=== PATIENT | female | born 2000 | race Caucasian/White ===

== ENCOUNTER 2023-10-14 19:16 | Inpatient (IN) | payer OTHER ==
[2023-10-14 21:38] LABS: EPI CELLS >36 /uL (0-25.1); HYALINE CASTS 2 /uL (0-3.1); PH,URINE >= 9.0 (5.0-8.0); URINE APPEARANCE CLOUDY; URINE BACTERIA 1407 /uL (0-1359); URINE BILIRUBIN NEGATIVE (NEGATIVE); URINE COLOR YELLOW; URINE GLUCOSE (UA) NEGATIVE (NEGATIVE); URINE KETONE NEGATIVE (NEGATIVE); URINE LEUK ESTERASE NEGATIVE (NEGATIVE); URINE NITRITE NEGATIVE (NEGATIVE); URINE PROTEIN 2+ (NEGATIVE); URINE WBC 39 /uL (0-25.8)
[2023-10-14] MEDS ORDERED: ONDANSETRON 4 MG/2 ML VIAL ONE (22:08)
[2023-10-14] MEDS ORDERED: ACETAMINOPHEN INJECTION 100 ML IVPB ONE (22:09)
[2023-10-14] MEDS: ONDANSETRON 4 MG/2 ML VIAL IVPUSH ONE (22:17)
[2023-10-14] MEDS: ACETAMINOPHEN 1000 MG/100 ML BAG IVPB ONE (22:17)
[2023-10-14] MEDS: LACTATED RINGERS SOLUTION 1000 ML INFUS.BAG IV ONE (22:17)
[2023-10-14 22:21] LABS: BASO % 0.4 % (0-2.0); HEMATOCRIT 41.8 % (32.4-45.2); HEMOGLOBIN 13.7 GM/dL (10.7-15.3); LYMPH % 39.9 % (8-40); MCH 23.3 pg (25.7-33.7); MCHC 32.8 g/dl (32.0-36.0); MEAN PLT VOLUME 9.2 fl (7.5-11.1); MONO % 9.4 % (3.8-10.2); NEUT % 49.3 % (42.8-82.8); PLATELET COUNT 306 10^3/uL (134-434); RBC 5.89 M/mm3 (3.60-5.2); RDW 14.9 % (11.6-15.6); WHITE BLOOD COUNT 6.4 K/mm3 (4.0-10.0)
[2023-10-14 22:36] LABS: INR 1.04 (0.83-1.09); PROTHROMBIN TIME (PATIENT) 12.1 SEC (9.7-13.0)
[2023-10-14 22:39] LABS: ACTIVATED PTT 23.7 SECONDS (25.2-36.5)
[2023-10-14 22:41] LABS: CHLORIDE 87 mmol/L (98-107); SODIUM 137 mmol/L (136-145)
[2023-10-14 22:43] LABS: CALCIUM 10.7 mg/dL (8.5-10.1)
[2023-10-14 22:44] LABS: ALBUMIN 4.3 g/dl (3.4-5.0); BLOOD UREA NITROGEN 16.2 mg/dL (7-18); CO2 41 mmol/L (21-32); GLUCOSE,RANDOM 88 mg/dL (74-106); MAGNESIUM 2.1 mg/dL (1.8-2.4)
[2023-10-14 22:47] LABS: CREATININE 0.9 mg/dL (0.55-1.3); SGOT/AST 29 U/L (15-37); SGPT/ALT 48 U/L (13-61)
[2023-10-14 22:49] LABS: BILIRUBIN,TOTAL 0.7 mg/dL (0.2-1)
[2023-10-14 22:50] LABS: ALK PHOS 76 U/L (45-117)
[2023-10-14 22:55] LABS: ANION GAP 8 mmol/L (4-13); POTASSIUM 2.7 mmol/L (3.5-5.1)
[2023-10-14] MEDS ORDERED: POTASSIUM CHLORIDE TABS 20 MEQ TABLET.ER (FP) PO ONE (23:00)
[2023-10-14] MEDS ORDERED: KCL 10 MEQ IVPB 10 MEQ/100 ML INFUS.BAG IVPB ONE (23:01)
[2023-10-14] MEDS: POTASSIUM CHLORIDE TABS 20 MEQ TABLET.ER (FP) PO ONE (23:05)
[2023-10-14] MEDS: KCL 10 MEQ IVPB 10 MEQ/100 ML INFUS.BAG IVPB SCH (23:46)
[2023-10-15] MEDS ORDERED: ONDANSETRON 4 MG/2 ML VIAL IVPUSH PRN (03:05)
[2023-10-15] MEDS ORDERED: ACETAMINOPHEN 1000 MG/100 ML BAG IVPB PRN (04:10)
[2023-10-15] MEDS: SODIUM CHLORIDE 1,000 ML with POTASSIUM CHLORIDE 40 MEQ IV SCH (05:51)
[2023-10-15 07:51] LABS: BASO % 0.7 % (0-2.0); HEMATOCRIT 41.4 % (32.4-45.2); HEMOGLOBIN 13.2 GM/dL (10.7-15.3); LYMPH % 43.5 % (8-40); MCH 22.9 pg (25.7-33.7); MCHC 31.9 g/dl (32.0-36.0); MEAN CELL VOLUME 71.9 fl (80-96); MONO % 10.1 % (3.8-10.2); NEUT % 44.7 % (42.8-82.8); PLATELET COUNT 243 10^3/uL (134-434); RBC 5.76 M/mm3 (3.60-5.2); RDW 14.6 % (11.6-15.6); WHITE BLOOD COUNT 6.6 K/mm3 (4.0-10.0)
[2023-10-15 08:05] LABS: CHLORIDE 91 mmol/L (98-107); SODIUM 137 mmol/L (136-145)
[2023-10-15 08:12] LABS: ALBUMIN 4.1 g/dl (3.4-5.0); CALCIUM 9.7 mg/dL (8.5-10.1)
[2023-10-15 08:13] LABS: BLOOD UREA NITROGEN 14.2 mg/dL (7-18); CO2 37 mmol/L (21-32); CREATININE 0.8 mg/dL (0.55-1.3); GLUCOSE,RANDOM 85 mg/dL (74-106); MAGNESIUM 2.2 mg/dL (1.8-2.4)
[2023-10-15 08:14] LABS: SGOT/AST 30 U/L (15-37)
[2023-10-15 08:15] LABS: BILIRUBIN,TOTAL 0.9 mg/dL (0.2-1); TOT PROT 7.4 g/dl (6.4-8.2)
[2023-10-15 08:16] LABS: ALK PHOS 69 U/L (45-117); ANION GAP 9 mmol/L (4-13); PHOSPHOROUS 3.1 mg/dL (2.5-4.9); POTASSIUM 2.5 mmol/L (3.5-5.1); SGPT/ALT 46 U/L (13-61)
[2023-10-15] MEDS: POTASSIUM CHLORIDE 40 MEQ in SODIUM CHLORIDE 1,000 ML IV SCH (08:27)
[2023-10-15] MEDS: KCL 10 MEQ IVPB 10 MEQ/100 ML INFUS.BAG IVPB SCH ×2 (08:28→09:17)
[2023-10-15] MEDS ORDERED: ENOXAPARIN NA (PORCINE) 40 MG/0.4 ML DISP.SYRIN SQ SCH (10:00)
[2023-10-15] MEDS: D5-1/2NS+10 MEQ KCL - 10 MEQ/1,000 ML INFUS.BAG IV SCH (10:26)
[2023-10-15] MEDS ORDERED: PANTOPRAZOLE SODIUM 40 MG/100 ML BAG IVPB ONE (10:38)
[2023-10-15] MEDS: PANTOPRAZOLE SODIUM 40 MG VIAL IVPUSH SCH (11:18)
[2023-10-15] MEDS ORDERED: THIAMINE HCL 200 MG/2 ML VIAL ONE (13:24)
[2023-10-15] MEDS: THIAMINE HCL 200 MG/2 ML VIAL IVPB ONE (13:38)
[2023-10-15 14:42] LABS: METHADONE, UR NEGATIVE (NEGATIVE); URINE AMPHETAMINES NEGATIVE (NEGATIVE)
[2023-10-15 14:43] LABS: COCAINE, UR NEGATIVE (NEGATIVE); OPIATES, URI NEGATIVE (NEGATIVE); PHENCYCLIDINE,URINE NEGATIVE (NEGATIVE); URINE BARBITURATES NEGATIVE (NEGATIVE); URINE BENZODIAZEPINES NEGATIVE (NEGATIVE)
[2023-10-15] MEDS ORDERED: chlordiazePOXIDE HCL 10 MG CAPSULE ONE (17:13)
[2023-10-15] MEDS: chlordiazePOXIDE HCL 10 MG CAPSULE PO SCH (17:19)
[2023-10-15 20:38] LABS: VENOUS BASE EXCESS 8.2 mmol/L (-2-2); VENOUS O2 SATURATION 61.1 % (70-80); VENOUS PCO2 54.2 mmHg (38-52); VENOUS PH 7.42 (7.310-7.410)
[2023-10-15 21:12] LABS: POTASSIUM 3.6 mmol/L (3.5-5.1)
[2023-10-15 21:13] LABS: CALCIUM 9.6 mg/dL (8.5-10.1)
[2023-10-15 21:14] LABS: BLOOD UREA NITROGEN 13.9 mg/dL (7-18)
[2023-10-15 21:17] LABS: CREATININE 0.8 mg/dL (0.55-1.3)
[2023-10-16 01:29] VITALS: RESP 20; BMI 25.8
[2023-10-16 11:28] VITALS: BP 93/55; PULSE 66; TEMP 97.9
[2023-10-16 11:46] LABS: BASO % 0.7 % (0-2.0); EOS % 1.9 % (0-4.5); HEMOGLOBIN 11.2 GM/dL (10.7-15.3); LYMPH % 53.4 % (8-40); MCH 23.7 pg (25.7-33.7); MCHC 33.1 g/dl (32.0-36.0); MEAN CELL VOLUME 71.7 fl (80-96); MEAN PLT VOLUME 9.6 fl (7.5-11.1); MONO % 9.6 % (3.8-10.2); NEUT % 34.4 % (42.8-82.8); PLATELET COUNT 202 10^3/uL (134-434); RBC 4.74 M/mm3 (3.60-5.2); RDW 14.6 % (11.6-15.6); WHITE BLOOD COUNT 5.3 K/mm3 (4.0-10.0)
[2023-10-16 12:14] LABS: POTASSIUM 3.5 mmol/L (3.5-5.1)
[2023-10-16 12:16] LABS: BLOOD UREA NITROGEN 11.1 mg/dL (7-18); CALCIUM 8.7 mg/dL (8.5-10.1)
[2023-10-16 12:19] LABS: CREATININE 0.6 mg/dL (0.55-1.3)
[2023-10-16] MEDS ORDERED: PANTOPRAZOLE 40 MG TABLET PO SCH (13:00)
== END 2023-10-16 13:30 | disposition home or self-care (01) | DRG 422 ==
LOC: JER 19:16 → JERBED 10-15 03:08 → J4W 10-15 22:14
PROVIDERS: ADMIT Internal Medicine; ATTEND Internal Medicine
DX: E87.6 Hypokalemia (principal); F10.10 Alcohol abuse, uncomplicated; R11.2 Nausea with vomiting, unspecified; E87.3 Alkalosis; E86.0 Dehydration
CPT/HCPCS: 0241U-QW; 36415; 71045-TC-FY; 74177-TC; 80048; 80053; 80307; 81003; 82803; 83605; 83690; 83735; 84100; 84439; 84443; 84703; 85025; 85610; 85730; 86850; 86900; 86901; 87086; 93005; 93010; 99285-25; J0131; Q9967